=== PATIENT | female | born 1995 | race Caucasian/White ===

== ENCOUNTER 2017-04-11 21:16 | Emergency (ER) | payer BC, OTHER ==
[~2017-04-11] VITALS: Ht 162.6 cm; Wt 95.2 kg
--- OUTSIDE RECORDS SUMMARY | ~2017-04-11 | XMS | Clinical Summary ---
Demographics + + + | Address | [address] | | | [place] [address] | + + + | Home Phone | | + + + | Preferred Language | Unknown | + + + | Marital Status | Single | + + + | Bahai Affiliation | Unknown | + + + | Race | White | + + + | Ethnic Group | Not or | + + + Author + + + | Author | [facility] | + + + | Organization | [facility] | + + + | Address | Unknown | + + + | Phone | Unavailable | + + + Support +------+ + + + + | Name | Relationship | Address | Phone | +------+ + + + + ECON | [address] | | [place] [address] | +------+ + + + + Care Team Providers + +------+ + | Care Foundry Operator Name | Role | Phone | + +------+ + | Clark Montana MD | PP | | + +------+ + Source Comments JONNATHAN is fully live on both [facility] and [facility] Allergies Not on File Current Medications Not on file Active Problems Not on file Social History + +-------+ +--------+------+ | Tobacco Use | Types | Packs/Day | Years | Date | | | | | Used | | + +-------+ +--------+------+ | Never Smoker | | | | | + +-------+ +--------+------+ + + + | Sex Assigned at | Date Recorded | | | | + + + | Not on file | | + + + Last Filed Vital Signs + + + + | Vital Sign | Reading | Time Taken | + + + + | Blood Pressure | - | - | + + + + | Pulse | - | - | + + + + | Temperature | - | - | + + + + | Respiratory Rate | - | - | + + + + | Oxygen Saturation | - | - | + + + + | Inhaled Oxygen | - | - | | Concentration | | | + + + + | Weight | 81.6 kg (180 lb) | 06/12/2014 9:56 AM PDT | + + + + | Height | 165.1 cm (5' 5") | 06/12/2014 9:56 AM PDT | + + + + | Body Mass Index | 29.95 | 06/12/2014 9:56 AM PDT | + + + + Plan of Treatment + + + + + | Health Maintenance | Due Date | Last Done | Comments | + + + + + | INFLUENZA VACCINE | | | | | (FLU SHOT) | 7 | | | + + + + + Results Not on filefrom Last 3 Months
--- OUTSIDE RECORDS SUMMARY | ~2017-04-11 | XMS | Clinical Summary ---
Demographics + + + | Address | [address] | | | [place] [address] | + + + | Home Phone | | + + + | Preferred Language | Unknown | + + + | Marital Status | Single | + + + | Druze Affiliation | Unknown | + + + [...] [address] | | [place] [address] | +------+ + + + + Care Team Providers + +------+ + | Care Mailroom Associate Name | Role | Phone | + +------+ + | Clark Montana MD | PP | | + +------+ + Source Comments JONNATHAN is fully live on both [facility] and [facility] Allergies Not on File Current Medications Not [...]
[~2017-04-11 21:16] MED LIST: IBUPROFEN800 MG PO; LIDOPIN28 GM TP; NORCO 5-325 TA1 EACH PO; NORTRIPTYLINE H10 MG PO; VALIUM5 MG PO
[2017-04-11] MEDS ORDERED: TRAMADOL HCL50 MG PO (22:14)
== END 2017-04-11 22:45 | disposition home or self-care (01) ==
LOC: ED 21:16
DX: S30.0XXA Contusion of lower back and pelvis, initial encounter (principal); F17.200 Nicotine dependence, unspecified, uncomplicated; W55.12XA Struck by horse, initial encounter
CPT/HCPCS: 72070; 72100; 99283

== ENCOUNTER 2018-01-04 00:04 | Emergency (ER) | payer BC, OTHER ==
[~2018-01-04] VITALS: Ht 162.6 cm; Wt 81.7 kg
[~2018-01-04 00:04] MED LIST changes: +TRAMADOL HCL50 MG PO
[2018-01-04] MEDS ORDERED: OMEPRAZOLE20 MG PO (00:13)
[2018-01-04] MEDS ORDERED: NORCO 5-325 TA1 EACH PO (21:06)
[2018-01-04] MEDS ORDERED: ZOFRAN ODT4 MG PO (21:06)
== END 2018-01-04 01:04 | disposition home or self-care (01) ==
LOC: ED 00:04
DX: K21.9 Gastro-esophageal reflux disease without esophagitis (principal); Z79.899 Other long term (current) drug therapy
CPT/HCPCS: 99283

== ENCOUNTER 2021-08-27 12:56 | Day surgery (SDC) | payer BC ==
[~2021-08-27] VITALS: Ht 162.6 cm; Wt 81.7 kg
--- NOTE | ~2021-08-27 | OR ---
[facility] [address] [place], [place] [address] Draft DATE OF OPERATION: 08/27/2021 SURGEON: Darron Cameron DO PREOPERATIVE DIAGNOSES: 1. Inevitable miscarriage. 2. Acute vaginal hemorrhage. 3. Syncope. 4. Rh negative status post RhoGAM. POSTOPERATIVE DIAGNOSES: 1. Inevitable miscarriage. 2. Acute vaginal hemorrhage. 3. Syncope. 4. Rh negative status post RhoGAM. PROCEDURES PERFORMED: Suction, dilation and curettage. SMOKEHOUSE OPERATOR: Bhavin Medeiros MD ANESTHESIA: General. ESTIMATED BLOOD LOSS: 100 mL in the operating room with at least 500 mL previously in the emergency department. SPECIMEN: Products of conception. FINDINGS: Normal external genitalia with normal clitoris, urethral meatus, bilateral [place]'s and Bartholin glands. Normal perineal body. Heavy vaginal bleeding with clot and hemorrhage noted. Cervical os was widely open with products of conception noted inside the uterine cavity. Uterine contents evacuated completely and the uterus involuted was hemostatic at the end of the procedure. COMPLICATIONS: None. PATIENT NAME: HOLDEN NEFF OPERATIVE REPORT DATE OF : [birth year] REPORT #: [id number] PHYSICIAN: DARRON CAMERON DO PCP: OTHER PCP REPORT IS CONFIDENTIAL AND NOT TO BE RELEASED WITHOUT AUTHORIZATION [facility] [address], [place] [address] Draft INDICATIONS: Ms. Sanabria is a very pleasant 25-year-old white female, who presented to the emergency department with vaginal bleeding for several hours. She reports approximately 11 weeks and she was notified last week of a non viable . She received RhoGAM due to Rh negative status. This morning, the bleeding increased in intensity and she was brought to the emergency department. The cervix was widely open and the emergency physician attempted evacuations of uterine contents with resulting uterine hemorrhage. I was called to evaluate the patient and decision was made to proceed quickly to the operative theater for further surgical management. Risks, benefits, and alternatives were discussed in detail with the patient. The patient understands and wished to proceed with procedure. TECHNIQUE: The patient was taken to the operating room. A time-out was performed to confirm correct patient and correct procedure. The patient was prepped and draped in the dorsal lithotomy position with her feet in Yellofin stirrups and bladder was drained. The patient had two large-bore IVs in place and crystalloid running. The patient received 1 g of tranexamic acid IV preoperatively. No preoperative antibiotics or heparin were given. The vagina was evacuated of a large amount of clot and the cervix was evaluated and noted to be widely patent. The anterior lip of the cervix was grasped with Allis clamp and products of conception could be seen at the internal os. The polyp forceps were selected and intrauterine contents were gently teased from the uterine cavity. Small amount of bleeding was noted at this point. With the cervix widely patent, no additional dilation was required and a 12 curved suction curette was selected and advanced gently to the fundus without difficulty. Suction was then obtained to the green zone and the curette was gently withdrawn while rotating to perform circumferential curettage. Products of conception were noted in the suction tubing on the first pass. Two additional passes were performed that demonstrated no additional products of conception and minimal bleeding. A large sharp curette was selected and advanced into the uterine cavity very gently and the uterine cavity was probed and no residual products of conception were noted. One final pass was performed with suction curettage and, the uterus was noted to be involuted and firm and hemostatic. The patient was then taken to the PACU in good and stable condition. Products of conception were sent to pathology for further evaluation. Sponge, needle, and instrument count was correct x2 at the end the procedure. Dr. Medeiros was present and participated in all portions of the procedure. PATIENT NAME: HOLDEN NEFF OPERATIVE REPORT DATE OF : [birth year] REPORT #: [id number] PHYSICIAN: DARRON CAMERON DO PCP: OTHER PCP REPORT IS CONFIDENTIAL AND NOT TO BE RELEASED WITHOUT AUTHORIZATION [facility] [address] [place], [place] [address] Draft Darron Cameron DO JOLAMIDE/JOHN /[id number] cc: Zhane Damico MD Copies: ZHANE DAMICO MD ~ PATIENT NAME: HOLDEN NEFF OPERATIVE REPORT DATE OF : [birth year] REPORT #: [id number] PHYSICIAN: DARRON CAMERON DO PCP: OTHER PCP REPORT IS CONFIDENTIAL AND NOT TO BE RELEASED WITHOUT AUTHORIZATION
[~2021-08-27 12:56] MED LIST changes: +OMEPRAZOLE20 MG PO; +ZOFRAN ODT4 MG PO
[2021-08-27] MEDS ORDERED: WOMEN'S DAILY1 EACH PO (13:44)
--- NOTE | 2021-08-27 15:02 | NUR ---
08/27/21 1502 Michelle Huitron 1436 PATIENT INTO PACU. REPORT RECIEVED FROM MALINI GTZ. OPA APPLIED FOR AIRWAY SUPPORT. OXYGEN AT 6 LITERS VIA MASK. OXYGEN SATURATIONS MAINTAINING ABOVE 95%. BREATHING EQUAL AND UNLABORED. PATIENT IS NONAROUSABLE. MIKE PAD APPLIED. IVF WITH 40 OF PIT INFUSING. 1445 OPA REMOVED. PATIENT AROUSABLE AND DROWSY. PATIENT DENIES ANY PAIN OR NAUSEA. PATIENT IS ON 6 LITERS OF OXYGEN VIA MASK. OXYGEN SATURATIONS ARE ABOVE 95%. MIKE PAD HAS SPOTTING ON IT OF RED BLOOD. IVF INFUSING.
--- NOTE | 2021-08-27 15:58 | NUR ---
1530: PT ARRIVES TO DS RM 11 VIA STRETCHER AWAKE AND ALERT. PT TEARFUL ON ARRIVAL, PROVIDED TISSUES. PT DENIES NAUSEA ON ARRIVAL AND STATES PAIN "BETTER" 08/09. FAMILY AT BEDSIDE ON ARRIVAL. PT PROVIDED APPLE JUICE, PUDDING AND CRACKERS IN ANTICIPATION OF ORAL ABX ORDERED. PT STATES BEING COLD AND PROVIDED WARM BLANKETS AND KIRBY HUGGER PLACED ON WARM. DC CRITERIA EXPLAINED TO PT AND CALL LIGHT WITHIN REACH.
[2021-08-27] MEDS ORDERED: IBUPROFEN800 MG PO (16:09)
--- NOTE | 2021-08-27 16:47 | NUR ---
1615: PT USES CALL LIGHT TO ALERT RN OF URGE TO VOID. PT AMBULATES WITH STEADY GAIT AND NO DIZZINESS TO BATHROOM, ABLE TO VOID APPROX 150 MLS RED COLORED URINE WITH NO TISSUE/CLOTS PRESENT. NEW MIKE PAD AND MESH PANTIES PROVIDED. PT BACK TO DS RM 11 TO GET DRESSED. DC INSTRUCTIONS PRESENTED VERBALLY AND WRITTEN, PT VERBALIZES AN UNDERSTANDING. PT DC VIA WC TO PERSONAL VEHICLE WITH SIG OTHER TO HOME.
--- NOTE | 2021-08-30 08:23 | PATH ---
[facility] [address] [place], [place] [address] Signed SPECIMEN(S): A PRODUCTS OF CONCEPTION SPECIMEN SOURCE: A. PRODUCTS OF CONCEPTION CLINICAL HISTORY: Inevitable miscarriage with acute blood loss and syncope. FINAL PATHOLOGIC DIAGNOSIS: Products of conception: - Products of conception. TWK:caw:C2NR MICROSCOPIC EXAMINATION: The specimen consists of chorionic villi and decidua. Trophoblastic disease is not seen. Embryonic tissue is not identified. TWK GROSS DESCRIPTION: The specimen, labeled "TA, A," and designated on the requisition "products of conception," is received in formalin and consists of a suction container containing multiple maza to dark brown, ragged soft tissue fragments, 7.2 x 5.4 x 2.1 cm in aggregate. parts or an embryo are not grossly identified. Possible villous tissue is grossly identified amongst the fragments. Brick Wheeler sections are submitted in one cassette (A1). AI (under the direct supervision of a pathologist) The Gross Description was prepared using a voice recognition system. The report was reviewed for accuracy; however, sound-alike word errors, addition and/or deletions may occur. If there is any question about this report, please contact Client Services. PERFORMING LABORATORY: The technical component was performed by [facility], [address] [place] [id number] (CLIA# [id number]). The professional interpretation was performed by [facility], [facility], [address] [place] [address] (CLIA#: [id number]). Diagnostician: Temo Alvarez MD Pathologist PATIENT NAME: HOLDEN NEFF PATHOLOGY DATE OF : [birth year] REPORT #: [id number] PHYSICIAN: [facility] PCP: OTHER PCP REPORT IS CONFIDENTIAL AND NOT TO BE RELEASED WITHOUT AUTHORIZATION [address] [place], [place] [address] Signed Electronically Signed 08/30/2021 Copies: ~ PATIENT NAME: HOLDEN NEFF PATHOLOGY DATE OF : [birth year] REPORT #: [id number] PHYSICIAN: [facility] PCP: OTHER PCP REPORT IS CONFIDENTIAL AND NOT TO BE RELEASED WITHOUT AUTHORIZATION
== END 2021-08-27 18:00 | disposition home or self-care (01) ==
LOC: ED 12:56 → DS 14:00 → DSVR 14:01 → DS 18:00
PROVIDERS: ATTEND Obstetrics & Gynecology
PROC: 10D17Z9 Manual Extraction of Products of Conception, Retained, Via Natural or Artificial Opening (ICD-10-PCS; principal; 2021-08-27 13:59)
DX: O03.1 Delayed or excessive hemorrhage following incomplete spontaneous abortion (principal); K21.9 Gastro-esophageal reflux disease without esophagitis; K58.9 Irritable bowel syndrome, unspecified; Z67.91 Unspecified blood type, Rh negative; Z87.891 Personal history of nicotine dependence; Z88.5 Allergy status to narcotic agent
CPT/HCPCS: 01965; 36415; 76801; 85025; 86850; 86870; 86900; 86901; 87502; 96374; 99285-25; J1100; J1170; J1885; J2001; J2370; J2405; J2590; J2704; J3010; J7030; U0003